=== PATIENT | female | born 1935 | race Caucasian/White ===

== ENCOUNTER 2018-04-17 11:19 | Emergency (ER) | payer MEDICARE | END 2018-04-17 12:18 | disposition home or self-care (01) | LOC: BURERS 11:19 | DX: S81.812A Laceration without foreign body, left lower leg, initial encounter (principal); Z79.899 Other long term (current) drug therapy; W22.8XXA Striking against or struck by other objects, initial encounter | CPT/HCPCS: 12002; J2001 ==

== ENCOUNTER 2018-04-20 09:37 | Emergency (ER) | payer MEDICARE ==
[2018-04-20] MEDS ORDERED: traMADol HCl 50 MG TAB ONE (10:23)
== END 2018-04-20 10:22 | disposition home or self-care (01) ==
LOC: BURERS 09:37
DX: S81.812D Laceration without foreign body, left lower leg, subsequent encounter (principal); Z79.899 Other long term (current) drug therapy
CPT/HCPCS: 99282

== ENCOUNTER 2018-04-27 09:04 | Emergency (ER) | payer MEDICARE | END 2018-04-27 09:27 | disposition home or self-care (01) | LOC: BURERS 09:04 | DX: S81.812D Laceration without foreign body, left lower leg, subsequent encounter (principal); Z79.899 Other long term (current) drug therapy ==

== ENCOUNTER 2020-01-02 09:54 | Emergency (ER) | payer MEDICARE ==
--- NOTE | 2020-01-02 17:33 | RAD ---
PELVIS ONE VIEW: Date: 01-02-2020 FINDINGS: No fracture was appreciated. The bony pelvis and hips all appeared intact. The symphysis shows no wid ening or off-set. The SI joints are symmetrical. IMPRESSION: No acute bony findings. POS: HOME
--- NOTE | 2020-01-02 17:34 | RAD ---
SACRUM AND COCCYX: Date: 01-02-2020 FINDINGS: No fracture was seen. The arcuate lines of the sacrum appear intact and the SI joints are normal in a ppearance. The coccyx is normal in appearance on the lateral view. Some mild to moderate degenerative changes are seen in the lower lumbar spine. IMPRESSION: No acute traumatic changes. POS: HOME
== END 2020-01-02 11:14 | disposition home or self-care (01) ==
LOC: BURERS 09:54
DX: S32.2XXA Fracture of coccyx, initial encounter for closed fracture (principal); S81.812A Laceration without foreign body, left lower leg, initial encounter; W19.XXXA Unspecified fall, initial encounter
CPT/HCPCS: 72170; 72220